=== PATIENT | male | born 1980 | race Caucasian/White ===

== ENCOUNTER 2024-01-21 12:29 | Emergency (ER) | payer OTHER ==
[2024-01-21] MEDS ORDERED: Lidocaine 1% PF 5 ML VIAL ONE ×2 (12:49→13:27)
== END 2024-01-21 14:00 | disposition home or self-care (01) ==
LOC: BURERS 12:29
DX: S61.210A Laceration without foreign body of right index finger without damage to nail, initial encounter (principal); W22.8XXA Striking against or struck by other objects, initial encounter
CPT/HCPCS: 12001; 99282